=== PATIENT | male | born 1955 | race Caucasian/White ===

== ENCOUNTER → 2018-05-04 | Outpatient (CLI) | payer BC ==
[2018-05-04 15:33] LABS: HCT 41.2 % (39.0-53.0); MCHC 31.5 g/dL (31.0-37.0); MCV 88.8 fL (80.0-100.0); Mean Platelet Volume 6.5; Platelet Count 290 k/uL (150-450); RBC 4.64 m/uL (4.30-5.90); RDW 13.3 % (11.5-15.5); WBC 4.4 k/uL (3.8-10.6)
[2018-05-04 15:35] LABS: Appearance,Urine Clear (Clear); Bilirubin,Urine Negative (Negative); Blood,Urine Negative (Negative); Color,Urine Light Yellow; Glucose,Urine (UA) Negative (Negative); Ketones,Urine Negative (Negative); Leukocyte Esterase,Urine Negative (Negative); Nitrite,Urine Negative (Negative); PH, Urine 6.5 (5.0-8.0); Protein,Urine Negative (Negative); Specific Gravity,Urine 1.008 (1.001-1.035); Urobilinogen,Urine <2.0 mg/dL (<2.0)
[2018-05-04 15:44] LABS: INR 0.9 (<1.2); Prothrombin Time 9.6 sec (9.0-12.0)
[2018-05-04 15:46] LABS: Anion Gap 10 mmol/L; Blood Urea Nitrogen 21 mg/dL (9-20); Carbon Dioxide 26 mmol/L (22-30); Chloride 97 mmol/L (98-107); Potassium 4.3 mmol/L (3.5-5.1); Sodium 133 mmol/L (137-145)
== END | disposition home or self-care (01) ==
LOC: LABPAT 14:34
PROVIDERS: ATTEND Orthopaedic Surgery
DX: Z01.812 Encounter for preprocedural laboratory examination (principal); M16.11 Unilateral primary osteoarthritis, right hip
CPT/HCPCS: 80051; 81003; 82565; 84520; 85027; 85610; 85730; 86850; 86900; 86901; 87070

== ENCOUNTER 2018-05-15 05:44 | Inpatient (IN) | payer BC ==
[~2018-05-15 05:44] MED LIST: ACETAMINOPHEN TAB 500 MG TAB PO ONE; MELOXICAM 7.5 MG TAB PO ONE; TRANEXAMIC ACID 1,000 MG in SODIUM CHLORIDE 0.9% 100 ML IVPB ONE; ceFAZolin IN SWFI 2 GM/20 ML SYRINGE IVP ONE
[2018-05-15] MEDS ORDERED: HYDROmorphone 0.5 MG/0.5 ML SYRINGE IVP PRN ×3 (05:54→07:02)
[2018-05-15] MEDS ORDERED: MIDAZOLAM (PF) 2 MG/2 ML VIAL IV PRN (05:54)
[2018-05-15] MEDS ORDERED: DEXAMETHASONE SOD PHOSPHATE 10 MG/ML 1 ML VIAL IV ONE (05:54)
[2018-05-15] MEDS ORDERED: SCOPOLAMINE 1.5MG/72HR PATCH TRANSDERM ONE (05:54)
[2018-05-15] MEDS ORDERED: ONDANSETRON 4 MG/2 ML VIAL IVP ONE (05:54)
[2018-05-15] MEDS ORDERED: ROPIVACAINE 246.25 MG, EPINEPHrine 0.5 MG, KETOROLAC 30 MG, cloNIDine HCL/PF 80 MCG, WA... MISCELLANE ONE ×10 (05:55→06:30)
[2018-05-15] MEDS ORDERED: LACTATED RINGERS 1,000 ML IV ONE ×2 (06:29→08:10)
[2018-05-15] MEDS ORDERED: HEPARIN SODIUM,PORCINE 10,000 UNIT/ML 1 ML VIAL ONE (06:51)
[2018-05-15] MEDS ORDERED: SODIUM CHLORIDE 0.9% IRRIG 1,000 ML BTL IRRIGATION ONE (06:51)
[2018-05-15] MEDS ORDERED: GLYCOPYRROLATE 0.2 MG/ML 2 ML VIAL ONE (06:51)
[2018-05-15] MEDS ORDERED: PROPOFOL 10 MG/ML 20 ML VIAL IV ONE (06:51)
[2018-05-15] MEDS ORDERED: fentaNYL (PF) 50 MCG/ML 2 ML AMP ONE (06:51)
[2018-05-15] MEDS ORDERED: TRANEXAMIC ACID 1,000 MG/10 ML VIAL ONE (06:51)
[2018-05-15] MEDS ORDERED: SODIUM CHLORIDE 0.9% 100 ML BAG ONE (06:51)
[2018-05-15] MEDS ORDERED: MIDAZOLAM 2 MG/2 ML VIAL ONE (06:51)
[2018-05-15] MEDS ORDERED: ceFAZolin 3,000 MG in SODIUM CHLORIDE 0.9% IRRIGATIO 3,000 ML IRRIGATION ONE (06:56)
[2018-05-15] MEDS ORDERED: ONDANSETRON 4 MG/2 ML VIAL IVP PRN (07:02)
[2018-05-15] MEDS ORDERED: HYDROmorphone 1 MG/ML 1 ML SYRINGE IVP PRN (07:02)
[2018-05-15] MEDS ORDERED: DIAZEPAM 5 MG TAB PO PRN (07:02)
[2018-05-15] MEDS ORDERED: NALOXONE 0.4 MG/ML 1 ML VIAL IV PRN (07:02)
[2018-05-15] MEDS ORDERED: MAGNESIUM HYDROXIDE 2,400 MG/10 ML CUP PO PRN (07:02)
[2018-05-15] MEDS ORDERED: HYDROcodone/APAP 5-325MG 1 EACH TAB PO PRN (07:02)
[2018-05-15] MEDS ORDERED: hydrOXYzine PAMOATE 25 MG CAP PO PRN (07:02)
--- NOTE | 2018-05-15 08:44 | P.OP ---
Date of Procedure: 05/15/18 Preoperative Diagnosis: Severe osteoarthritis right hip Postoperative Diagnosis: Severe osteoarthritis right hip Procedure(s) Performed: Right total hip arthroplasty through direct anterior approach Implants: Qureshi and nephew Polarstem size 4 standard Qureshi [employer] Nephew R3, 3 hole acetabular shell, 52 mm Qureshi [employer] Nephew reflection 6.5 mm cancellus screw, 20 mm 2 Qureshi [employer] Nephew R3, XLPE 20 acetabular liner Qureshi [employer] Nephew Oxinium femoral head 36 m, +8 All components were press-fit. The articulation is Oxinium on polyethylene. Anesthesia: spinal Surgeon: Eliot Caldwell Quantitative Equity Head #1: Jaja Nugent Estimated Blood Loss (ml): 150 (67 mL returned with Cell Saver) Pathology: other (femoral head) Condition: stable Disposition: PACU Indications for Procedure: After failure of conservative treatment we discussed the surgical and nonsurgical treatment options at length. Patient wishes to proceed with a total hip arthroplasty with a direct anterior approach. Complications specific to this procedure were discussed at length, including but not limited to infection, leg length discrepancy, dislocation, and nerve injury. Patient is aware of all these complications and informed consent was obtained Operative Findings: The operative findings are consistent with severe osteoarthritis of the right hip Description of Procedure: Patient was seen and evaluated in the preoperative area, consent was reviewed, and the surgical site was marked with a skin marker. Patient was then brought to the operating room and given prophylactic antibiotics intravenously. 1 g of Tranexamic acid was also given. A spinal anesthetic was administered by the anesthesia department. The patient was then placed on the [place] table with the bony prominences well-padded. The hip area was then prepped and draped in usual sterile fashion. A universal timeout was then performed, which confirmed the patient's name, surgical site, ALLERGIES, and procedure being performed. Next the incision site was located at 1 cm distal and 1 cm lateral to the anterior superior iliac spine. The skin and subcutaneous tissues were sharply incised. Incision was carefully dissected down to the fascia overlying the tensor fascia satnam muscle. This fascia was then incised in line with the incision. Next, using blunt finger dissection, the tensor fascia satnam muscle was dissected off its investing fascia. The muscle was then carefully retracted laterally with a cobra retractor over the lateral neck of the femur. Next, the circumflex vessels were identified and cauterized using the AquaMantis device. The anterior hip capsule was then exposed. The capsule was then opened and an inverted T fashion. Cobra retractors were then placed intracapsularly. The proximal femur was then visualized. The femoral neck was then osteotomized appropriate level above the lesser trochanter. Small amount of traction was placed with the [place] table. A small wedge of bone was then removed from the remaining femoral head. Next, using a corkscrew femoral head was easily removed from the acetabulum. On gross visual inspection, the femoral head had complete loss of articular cartilage in m ultiple periarticular osteophytes. Attention was then turned to the acetabulum. the acetabulum was exposed and any remaining labrum was excised. Sequential reaming of the acetabulum was performed using fluoroscopic guidance. When the appropriate size was reached, a trial was then placed. The position and fit of the trial was checked with fluoroscopy. The trial was then removed. Then, using fluoroscopic guidance, the final implant was impacted at 20 of anteversion and 40 of abduction, and fully seated in the acetabulum. 2 screws were then placed in the acetabulum. Again fluoroscopy was used to check position of the screws. Next, the liner was then impacted, with a 20 elevated liner located in the anterior superior quadrant. Component locking was confirmed. Attention was then directed to the femur. With the aid of the [place] table, the femur was externally rotated to approximately 130, extended, and abducted under the opposite leg. A side hook was then placed under the proximal femur, and the side hook elevator was used to elevate the proximal femur. Retractors were then placed. A capsular release was performed, as well as a release of the conjoined tendon, which afforded excellent visualization of the proximal femur. Next, a box osteotome was used to lateralize the proximal femur. A redye hand was then used to locate the femoral canal. Sequential broaching was then performed with appropriate size which afforded excellent fixation in the proximal femur. A trial was then placed with appropriate head and neck, and the hip was gently reduced with the aid of the [place] table. Fluoroscopy was then used to check position of the components, as well as to ensure equal leg lengths. The hip was then gently dislocated and the trials were then removed. Final implants were then impacted and the hip was again reduced. Final fluoroscopic x-rays confirmed that the components were in anatomic position, as well as equal leg lengths. The hip was also taken through range of motion, and found to be stable. The hip was then copiously irrigated with antibiotic solution with pulsatile lavage. The hip was then irrigated with Irrisept solution. The soft tissues were then injected with a ropivacaine solution, which consisted of 246.25 mg of ropivacaine, 0.5 mg of epinephrine, 30 mg of Toradol, 80 g of clonidine, and 48.45 mL of sterile water, for a total of 100 mL of fluid injected. A second dose of 1 g of Tranexamic acid was also given. the fascia was then closed with 2-0 strata fix suture. The subcutaneous tissue was closed with 3-0 Vicryl. The subcuticular tissue was closed with 3-0 strata fix suture. The skin was then closed with Dermabond glue and a sterile silver dressing. The patient was then transferred to the recovery room in stable c ondition. The human resources assistant manager ELAINA Mcmanus was required due to the complexity of surgery, and the need for skilled surgical scrub technologist for positioning, draping, exposure, retraction, and closure of the wound.
--- NOTE | 2018-05-15 08:48 | FL ---
EXAMINATION TYPE: FL guidance operating room, XR Hip Limited RT DATE OF EXAM: 05/15/2018 CLINICAL HISTORY: Right hip pain and osteoarthritis. TECHNIQUE: Fluoroscopy. Limited intraoperative views right hip. COMPARISON: None. FINDINGS: Fluoroscopic guidance was provided during hip replacement procedure performed by Dr. Daniel bearden. A total of 35 seconds of fluoroscopic time was utilized during the procedure and 2 spot intraop erative images are acquired. Intraoperative images acquired show metallic hardware from total hip arthroplasty satisfactory in pos ition on frontal projection. IMPRESSION: As Above.
--- NOTE | 2018-05-15 10:28 | XR ---
EXAMINATION TYPE: XR Hip Limited RT DATE OF EXAM: 05/15/2018 CLINICAL HISTORY: Right hip pain and osteoarthritis. TECHNIQUE: Single AP portable view of right hip is obtained immediately postoperatively. COMPARISON: None. FINDINGS: Metallic hardware from right hip arthroplasty is seen and appears satisfactory in alignment and position. There is evidence of recent surgery with subcutaneous gas noted laterally. IMPRESSION: Metallic hardware from right hip arthroplasty is satisfactory in position.
[2018-05-15 16:43] VITALS: BMI 25.2
[2018-05-15] MEDS: ceFAZolin IN SWFI 2 GM/20 ML SYRINGE IVP SCH ×2 (17:26→23:13)
[2018-05-15] MEDS: LACTATED RINGERS 1,000 ML IV SCH (17:29)
[2018-05-15] MEDS: SODIUM CHLORIDE 0.9% 1,000 ML IV SCH ×2 (17:30→23:17)
[2018-05-15] MEDS: ASPIRIN 325 MG TAB PO SCH ×2 (17:32→20:42)
[2018-05-15] MEDS: MELOXICAM 7.5 MG TAB PO SCH (17:32)
[2018-05-15] MEDS: HYDROcodone/APAP 5-325MG 1 EACH TAB PO PRN (20:42)
[2018-05-15] MEDS ORDERED: SENNOSIDES-DOCUSATE SODIUM 1 EACH TAB PO SCH (21:00)
--- NOTE | 2018-05-15 22:24 | CONS ---
CONSULTATION DATE OF SERVICE: 05/15/2018 REASON FOR CONSULTATION: Advice regarding hypertension hyperlipidemia requested by Orthopedic surgery. HISTORY OF PRESENT ILLNESS: This 62 -year-old gentleman with past medical history of hypertension, hyperlipidemia, degenerative joint disease, being followed by Dr. Reza Sher in the outpatient setting underwent right total hip joint arthroplasty by Dr. Caldwell. The patient tolerated the procedure well. There is no history of chest pain. No history of palpitations, headache, loss of consciousness, nausea, vomiting, diarrhea, fever, rigors and chills. PAST MEDICAL HISTORY: Hypertension, hyperlipidemia, history of DJD, history of cholecystectomy, history of hernia repair. MEDICATIONS ARE: 1. Triamterene. 2. Hydrochlorothiazide 37.5/25 p.o. daily. 3. Benicar 40 mg q.a.m. 4. Aleve p.r.n. 5. Centrum multivitamin. 6. Motrin 800 mg t.i.d. p.r.n. 7. Ginseng 300 mg q.a.m. 8. Vitamin D 3000 units daily. ALLERGIES: SULFA. FAMILY HISTORY: No history of heart disease or strokes in family. SOCIAL HISTORY: Previous history of smoking. No history of alcohol intake. REVIEW OF SYSTEMS: ENT: No diminished hearing. No diminished vision. CARDIOVASCULAR SYSTEM: No angina or palpitations. RESPIRATORY: As mentioned earlier. GI: No nausea or vomiting. : No dysuria. NERVOUS SYSTEM: No numbness or weakness. ALLERGY/IMMUNOLOGY: As mentioned earlier. MUSCULOSKELETAL: As mentioned earlier. HEMATOLOGY/ONCOLOGY: No history of anemia. ENDOCRINE: No history of diabetes or hypothyroidism. CONSTITUTIONAL: As mentioned earlier. Dermatology: Negative. Rheumatology: Negative. Psychiatry: As mentioned earlier. PHYSICAL EXAMINATION: The patient is alert and oriented times three. Pulse is 97, blood pressure 140/70, respirations 16, temperature 97.8, pulse ox 98% on room air. HEENT: Conjunctivae normal. Oral mucosa moist. Neck is no jugular venous distention. No carotid bruit. No lymph node enlargement. CARDIOVASCULAR: S1, S2 muffled. RESPIRATORY: Breath sounds diminished in the bases. No rhonchi. No crackles. ABDOMEN: Soft. Nontender. No mass palpable. LEGS: Status right hip surgery with hip arthroplasty. Nervous system: Higher functions as mentioned earlier. Moves all four extremities. No focal deficits. Skin: No ulcer, no rash. No bleeding. JOINTS: No active deforming arthropathy. LABS: Done preop CBC within normal limits. Coags are normal. Sodium is 133. ASSESSMENT: 1. Status post right hip joint arthroplasty. 2. Hypertension. 3. Hyperlipidemia. 4. History of degenerative joint disease. 5. Cholecystectomy. 6. Anxiety. 7. Remote history of nicotine dependence. 8. Hypernatremia preop. RECOMMENDATIONS AND DISCUSSION: In this 62-year-old gentleman who presented with multiple medical history, presented after surgery, I recommend to continue current management. Continue symptomatic treatment. Resume the home medications. Monitor blood pressure closely. DVT prophylaxis. Otherwise, I would also recommend repeat BMP and we will continue to monitor. We will follow the patient closely. Thank you, Dr. Caldwell for letting us participate in the care of this patient. SUHAIL / DIOGO: [id number] /
[2018-05-16] MEDS: HYDROcodone/APAP 5-325MG 1 EACH TAB PO PRN (03:29)
[2018-05-16] MEDS: LACTATED RINGERS 1,000 ML IV SCH (05:12)
[2018-05-16 07:02] VITALS: BP 120/70; PULSE 77; RESP 17; TEMP 98.6
[2018-05-16] MEDS: ASPIRIN 325 MG TAB PO SCH (07:02)
[2018-05-16] MEDS: MELOXICAM 7.5 MG TAB PO SCH (07:03)
[2018-05-16 07:28] LABS: Basophils % (A) 0 %; Eosinophils % (A) 0 %; HCT 33.1 % (39.0-53.0); HGB 10.6 gm/dL (13.0-17.5); Lymphocytes # (A) 2.4 k/uL (1.0-4.8); Lymphocytes % (A) 28 %; MCH 28.3 pg (25.0-35.0); MCHC 32.1 g/dL (31.0-37.0); MCV 88.2 fL (80.0-100.0); Mean Platelet Volume 6.5; Monocytes # (A) 0.6 k/uL (0-1.0); Monocytes % (A) 6 %; Neutrophils # (A) 5.5 k/uL (1.3-7.7); Neutrophils % (A) 64 %; Platelet Count 345 k/uL (150-450); RBC 3.75 m/uL (4.30-5.90); RDW 13.2 % (11.5-15.5); WBC 8.7 k/uL (3.8-10.6)
[2018-05-16 07:34] LABS: Anion Gap 6 mmol/L; Blood Urea Nitrogen 16 mg/dL (9-20); Calcium 9.2 mg/dL (8.4-10.2); Carbon Dioxide 25 mmol/L (22-30); Chloride 105 mmol/L (98-107); Glucose 97 mg/dL (74-99); Potassium 4.5 mmol/L (3.5-5.1); Sodium 136 mmol/L (137-145)
[2018-05-16] MEDS ORDERED: CHOLECALCIFEROL 1,000 UNIT TAB PO SCH (09:00)
[2018-05-16] MEDS ORDERED: LOSARTAN 50 MG TAB PO SCH (09:00)
--- NOTE | 2018-05-16 09:18 | P.DS ---
Providers Date of admission: 05/15/18 05:44 Expected date of discharge: 05/16/18 Attending physician: Eliot Caldwell Consults: 05/15/18 07:02 Consult Physician Routine Consulting Provider: Rebecca Chavez Consult Reason/Comments: medical management Do you want consulting provider notified?: Yes 05/15/18 16:16 Consult Physician Routine Consulting Provider: Domonique Louis Consult Reason/Comments: medical managment Do you want consulting provider notified?: Yes Primary care physician: Reza Sher - Discharge Diagnosis(es) (1) Osteoarthritis of right hip Current Visit: Yes Status: Acute (2) Status post total hip replacement, right Current Visit: Yes Status: Acute Hospital Course: This is a 62-year-old male with known history of degenerative arthritis of the right hip. The patient presents for evaluation. After discussion and consideration patient elects to proceed with total hip arthroplasty. The patient is seen preoperatively by Dr. Caldwell and medically cleared for surgery by their primary care physician. Patient is admitted to [facility] on 05/15/2018 for total hip arthroplasty. The procedures performed without complication or sequelae. The patient is doing well postoperatively. Labs and vital signs are stable on day of discharge. On day of discharge patient's hip incision is healing well. There is minimal erythema. There is no drainage noted at this time. There is minimal soft tissue swelling to the hip and thigh. Patient has full foot and ankle motion without difficulty or pain. Calf is soft and nontender to palpation. Neurovascular status to the right lower extremity is intact. Patient is discharged home in good condition. Opioid start talking form is reviewed and signed at patient bedside. Please see med rec for accurate list of home m edications. Plan - Discharge Summary Discharge Rx Participant: Yes New Discharge Prescriptions: New Aspirin 325 mg PO BID #60 tab Ibuprofen [Motrin] 800 mg PO TID PRN #90 tab PRN Reason: Pain No Action Triamterene/Hydrochlorothiazid [Dyazide 37.5-25 Capsule] 1 cap PO Q48H Naproxen Sodium [Aleve] 220 mg PO Q12HR PRN MDD alternates with motrin PRN Reason: Pain Ibuprofen [Motrin] 800 mg PO TID PRN PRN Reason: Pain Olmesartan Medoxomil [Benicar] 40 mg PO QAM Multivit-Min/FA/Lycopen/Lutein [Centrum Silver Tablet] 1 tab PO DAILY Ginseng 300 mg PO QAM Cholecalciferol [Vitamin D3] 1,000 unit PO DAILY Discharge Medication List Cholecalciferol [Vitamin D3] 1,000 unit PO DAILY 05/04/18 [History] Ginseng 300 mg PO QAM 05/04/18 [History] Ibuprofen [Motrin] 800 mg PO TID PRN 05/04/18 [History] Multivit-Min/FA/Lycopen/Lutein [Centrum Silver Tablet] 1 tab PO DAILY 05/04/18 [History] Naproxen Sodium [Aleve] 220 mg PO Q12HR PRN MDD alternates with motrin 05/04/18 [History] Olmesartan Medoxomil [Benicar] 40 mg PO QAM 05/04/18 [History] Triamterene/Hydrochlorothiazid [Dyazide 37.5-25 Capsule] 1 cap PO Q48H 05/04/18 [History] Aspirin 325 mg PO BID #60 tab 05/16/18 [Rx] Ibuprofen [Motrin] 800 mg PO TID PRN #90 tab 05/16/18 [Rx] Follow up Appointment(s)/Referral(s): Eliot Caldwell DO [Doctor of Osteopathic Medicine] - 2 Weeks Activity/Diet/Wound Care/Special Instructions: Weightbearing as tolerated with walker. Leave dressing intact. Dressing may be removed by home care nurse or by patient in 10 days. May shower with dressing on. [facility] follow[facility]up with [facility] in 2 weeks and call with any questions or concerns, . Discharge Disposition: HOME WITH HOME HEALTH SERVICES
--- NOTE | 2018-05-16 11:14 | CDI ---
Documentation Clarification Form Date: 05/16/2018 11:06:02 AM From: Maggie Jerry CCS, CCDS Admit Date: 05/15/2018 5:44:00 AM Patient Name: Carlos Quiroz Visit Number: [id number] Discharge Date: ATTENTION: The Clinical Documentation Specialists (CDI) and [facility] Coding Staff appreciate your assistance in clarifying documentation. Please respond to the clarification below the line at the bottom and electronically sign. The CDI & [facility] Coding staff will review the response and follow-up if needed. Please note: Queries are made part of the Legal Health Record. If you have any questions, please contact the author of this message via ITS. Dr. Domonique Louis: Per the medical management consult on 05/15: Hypernatremia, preop is documented. The patient's Na level is slightly low postoperatively: 136*. History/Risk Factors: Hypertension, Hyperlipidemia, OA: hips & knees with history of previous left knee replacement. Clinical Indicators: Admitted for elective right hip replacement, stable postoperatively. Lab findings: Na 136 Treatment: IV Kefzol, home meds resumed. In your professional opinion, can you please clarify your diagnosis based on the lab findings? Hypernatremia (documented as preop) Hyponatremia Hypernatremia and/or Hyponatremia ruled out Other, please specify Unable to determine (Last Revision: May 2017) Hyponatremia MTDD
[2018-05-16] MEDS: SODIUM CHLORIDE 0.9% 1,000 ML IV SCH (11:38)
[2018-05-16] MEDS ORDERED: MULTIVITAMINS, THERA 1 EACH TAB PO SCH (12:00)
[2018-05-16] MEDS ORDERED: IBUPROFEN 800 MG TAB PO STA (12:12)
--- NOTE | 2018-05-16 23:10 | PN ---
PROGRESS NOTE DATE OF SERVICE: 05/16/2018. HISTORY: This 62-year-old gentleman who was admitted after right knee joint arthroplasty also has hyponatremia. No chest pain. No palpitations. No fever. The patient had anemia which was previously documented. EXAM: Alert and oriented x3. Pulse is 77, blood pressure 120/77, respirations 16, temperature 98.2, pulse ox 97% on room air. HEENT: Conjunctivae normal. CARDIOVASCULAR: S1 and S2 muffled. LUNGS: Breath sounds diminished in the bases. No rhonchi or crackles. ABDOMEN: Soft. EXTREMITIES: Legs status post right knee joint arthroplasty. NERVOUS SYSTEM: No focal deficits. LABS: WBC 8.0, hemoglobin 9.7. ASSESSMENT: 1. Status post right total knee arthroplasty. 2. Hypertension. 3. Hyponatremia. 4. Hyperlipidemia. 5. History of degenerative joint disease. 6. Cholecystectomy. 7. Anxiety. 8. Remote history of nicotine dependence. RECOMMENDATIONS: Recommend to continue current medications and symptomatic treatment. Recommend followup labs with the primary physician. Continue supplement. Further recommendations per Orthopedic Surgery. DVT prophylaxis. Further recommendations to follow. MMODL / IJN: [id number] /
== END 2018-05-16 15:15 | disposition home health service (06) | DRG 470 ==
LOC: 2ORMAIN 05:44 → 4SSUR 15:58
PROVIDERS: ADMIT Orthopaedic Surgery; ATTEND Orthopaedic Surgery
PROC: 0SR906A Replacement of Right Hip Joint with Oxidized Zirconium on Polyethylene Synthetic Substitute, Uncemented, Open Approach (ICD-10-PCS; principal; 2018-05-15 07:00)
DX: M16.11 Unilateral primary osteoarthritis, right hip (principal); E87.1 Hypo-osmolality and hyponatremia; E78.5 Hyperlipidemia, unspecified; F41.9 Anxiety disorder, unspecified; I10 Essential (primary) hypertension; Z87.891 Personal history of nicotine dependence; Z90.49 Acquired absence of other specified parts of digestive tract; Z79.899 Other long term (current) drug therapy
CPT/HCPCS: 73501; 80048; 85025; 86850; 86891; 86900; 86901; 88305; 88311